=== PATIENT | male | born 1935 | race Native Hawaiian/Other Pacific Islander ===

== ENCOUNTER 2020-12-20 09:24 | Outpatient (CLI) | payer OTHER, MEDICARE | END 2020-12-20 22:55 | disposition home or self-care (01) | LOC: US 09:24 | PROVIDERS: ATTEND Internal Medicine | DX: R10.11 Right upper quadrant pain (principal) ==

== ENCOUNTER 2021-07-28 14:15 | Outpatient (CLI) | payer OTHER, MEDICARE | END 2021-07-28 18:56 | disposition home or self-care (01) | LOC: LABW 14:15 | PROVIDERS: ATTEND Internal Medicine Cardiovascular Disease | DX: I48.0 Paroxysmal atrial fibrillation (principal) | CPT/HCPCS: 36415; 85610 ==